=== PATIENT | male | born 1995 | race Caucasian/White ===

== ENCOUNTER 2017-10-16 23:31 | Emergency (ER) | payer OTHER ==
[~2017-10-16] VITALS: Ht 190.5 cm; Wt 74.8 kg
== END 2017-10-17 00:36 | disposition home or self-care (01) ==
LOC: ED 23:31
PROC: 0HQFXZZ Repair Right Hand Skin, External Approach (ICD-10-PCS; principal; 2017-10-16)
DX: S61.411A Laceration without foreign body of right hand, initial encounter (principal); Z23 Encounter for immunization; W26.8XXA Contact with other sharp object(s), not elsewhere classified, initial encounter
CPT/HCPCS: 12002; 90471; 90715; 99282

== ENCOUNTER 2021-08-12 15:55 | Emergency (ER) | payer SELFPAY ==
[~2021-08-12] VITALS: Ht 190.5 cm; Wt 74.8 kg
== END 2021-08-12 17:48 | disposition home or self-care (01) ==
LOC: ED 15:55
DX: K62.5 Hemorrhage of anus and rectum (principal)
CPT/HCPCS: 99283

== ENCOUNTER 2023-08-13 16:54 | Emergency (ER) | payer OTHER ==
[~2023-08-13] VITALS: Ht 190.5 cm; Wt 89.8 kg
[2023-08-13 20:08] VITALS: BP 135/74
[2023-08-13] MEDS ORDERED: IBUPROFEN 600 MG TAB PO ONE (20:15)
== END 2023-08-13 22:17 ==
LOC: ED 16:54
DX: S52.121A Displaced fracture of head of right radius, initial encounter for closed fracture (principal); V00.131A Fall from skateboard, initial encounter; Y93.51 Activity, roller skating (inline) and skateboarding
CPT/HCPCS: 29125; 73080; 99283-25; A9270

== ENCOUNTER 2024-05-16 19:36 | Emergency (ER) | payer OTHER ==
[~2024-05-16] VITALS: Ht 190.5 cm; Wt 92.1 kg
[~2024-05-16 19:36] MED LIST: PERCOCET 5-3251 EACH PO
[2024-05-16] MEDS ORDERED: MORPHINE SULFATE 10 MG/ML VIAL IM ONE (20:00)
[2024-05-16] MEDS ORDERED: SILVER SULFADIAZINE 400 GM HOME.PACK TOP ONE (20:00)
[2024-05-16] MEDS ORDERED: DIPHTH,PERTUSS(ACELL),TET VAC 0.5 ML SYRINGE IM ONE (20:00)
[2024-05-16] MEDS ORDERED: HYDROCODON-ACE1 EA10 PO (20:29)
[2024-05-16] MEDS ORDERED: AMOXICILLIN/CLAVULANATE K 875 MG HOME.PACK PO ONE (20:30)
[2024-05-16] MEDS ORDERED: AMOX TR-K CLV1 EAC1 PO (20:33)
[2024-05-16] MEDS ORDERED: HYDROCODONE BIT/ACETAMINOPHEN 5/325 MG 1 TAB HOME.PACK PO ONE (20:45)
[2024-05-16 20:53] VITALS: BP 163/95
== END 2024-05-16 20:54 | disposition home or self-care (01) ==
LOC: ED 19:36
DX: T21.22XA Burn of second degree of abdominal wall, initial encounter (principal); T25.222A Burn of second degree of left foot, initial encounter; X10.2XXA Contact with fats and cooking oils, initial encounter; Z79.899 Other long term (current) drug therapy
CPT/HCPCS: 16020; 90471; 90715; 99283-25; A9270; J2270